=== PATIENT | male | born 1980 | race Two or more races ===

== ENCOUNTER 2019-11-13 10:44 | Emergency (ER) | payer OTHER ==
[~2019-11-13] VITALS: Ht 188 cm; Wt 112.2 kg
[2019-11-13] MEDS ORDERED: KETOROLAC 30 MG/ML VIAL (J1885) IV ONE (11:15)
[2019-11-13] MEDS ORDERED: IBUP200C25 PO (11:36)
[2019-11-13 11:52] LABS: BASO % 0.2 % (0.0-1.0); EOS % 0.2 % (0.0-3.0); HEMATOCRIT 42.5 % (42.0-52.0); HEMOGLOBIN 14.6 g/dl (13.5-17.5); LYMPH % 20.4 % (24.0-44.0); MEAN CORPUSCULAR HEMOGLOBIN 30.1 pg (27.0-33.0); MEAN CORPUSCULAR HGB CONC 34.4 g/dl (32.0-36.5); MEAN CORPUSCULAR VOLUME 87.6 fl (80.0-96.0); MONO # 0.4 10^3/uL (0.0-0.8); MONO % 8.6 % (0.0-5.0); NEUTROPHILS # 3.6 10^3/uL (1.5-8.5); NEUTROPHILS % 70.4 % (36.0-66.0); PLATELET COUNT, AUTOMATED 266 10^3/uL (150-450); RED BLOOD COUNT 4.85 10^6/uL (4.30-6.10); WHITE BLOOD COUNT 5.1 10^3/uL (4.0-10.0)
[2019-11-13 12:17] LABS: ALBUMIN 4.4 GM/DL (3.2-5.2); BILIRUBIN,DIRECT 0.2 MG/DL (0.0-0.2); BILIRUBIN,TOTAL 0.7 MG/DL (0.2-1.0)
[2019-11-13] MEDS ORDERED: KETO10TAB PO (14:12)
[2019-11-13] MEDS ORDERED: FLOM0.4C39 PO (14:12)
--- NOTE | 2019-11-13 14:22 | REP ---
REASON: Right flank pain. PRIORS: None. The lung bases are essentially clear. Minimal dependent subsegmental atelectatic changes are present. Limited evaluation of the solid intra-abdominal organs and gallbladder shows no gross abnormality. Limited evaluation of the abdominal aorta and para-aortic regions show no gross abnormality. Limited evaluation of the pancreas, adrenal glands, and left kidney shows no gross abnormalities. There is no left-sided nephroureteral lithiasis, hydronephrosis, or hydroureter. There is mild right-sided hydronephrosis and hydroureter. Within the urinary bladder on the right, there is a 4-mm sized intraluminal calcification. No free fluid or free air is seen in the abdomen or pelvis. The intra-abdominal and pelvic loops and their mesenteries are within normal limits. There is no evidence of a mass or adenopathy. The imaged osseous structures are within normal limits. IMPRESSION: There is a calcification in the urinary bladder, as described above, consistent with a passed ureterolith. There is mild hydronephrosis and hydroureter secondary to that. Electronically Signed by Ziggy Cox DO 11/13/2019 02:33 P
[2019-11-13 14:24] VITALS: BP 149/82
== END 2019-11-13 14:30 | disposition home or self-care (01) ==
LOC: M ED 10:44
DX: N20.1 Calculus of ureter (principal); N13.30 Unspecified hydronephrosis; N13.4 Hydroureter
CPT/HCPCS: 36415; 74176; 80047; 80076; 81001; 83690; 85025; 96374; 99284; J1885